=== PATIENT | male | born 1950 | race Two or more races ===

== ENCOUNTER 2020-05-10 11:11 | Emergency (ER) | payer OTHER ==
[~2020-05-10] VITALS: Ht 170.2 cm; Wt 83.9 kg
[2020-05-10 11:26] VITALS: BP 140/89
[2020-05-10] MEDS ORDERED: TETANUS-DIPTH-ACEL PERTUSSIS 0.5ML SYR Tdap IM ONE (14:30)
[2020-05-10] MEDS ORDERED: cefTRIAXone SOD 1,000 MG VL IM ONE (14:30)
[2020-05-10] MEDS ORDERED: IBUPROFEN 800 MG TAB PO ONE (15:00)
== END 2020-05-10 15:18 | disposition home or self-care (01) ==
LOC: ER 11:11
DX: S62.633A Displaced fracture of distal phalanx of left middle finger, initial encounter for closed fracture (principal); W26.0XXA Contact with knife, initial encounter; Y93.89 Activity, other specified; Y92.89 Other specified places as the place of occurrence of the external cause; Y99.8 Other external cause status
CPT/HCPCS: 73130; 90471; 90715; 96372; 99284; J0696